=== PATIENT | male | born 1960 | race Asian ===

== ENCOUNTER 2024-07-25 13:06 | Emergency (ER) | payer SELFPAY ==
[2024-07-25 13:18] VITALS: BP 145/74; O2SAT 99
--- NOTE | 2024-07-25 13:28 | ED Physician Documentation ---
PD HPI SKIN - Stated complaint Stated Complaint: FISHING HOOK IN CHIN - Chief complaint Chief Complaint: Laceration - History obtained from History obtained from: Patient - Additional information Additional information: 63-year-old gentleman with unknown tetanus status [place] and another [place] person casted and now he has a fishing hook stuck in his chin that had been in a fish's mouth this morning. PD PAST MEDICAL HISTORY - Past Medical History Past Medical History: No Cardiovascular: None Respiratory: None Neuro: None Endocrine/Autoimmune: None GI: None : None HEENT: None Psych: None Musculoskeletal: None Derm: None - Past Surgical History Past Surgical History: No - Present Medications Home Medications: Ambulatory Orders Medication Instructions Recorded Confirmed Doxycycline [Vibramycin] 100 mg PO BID #10 tablet 07/25/24 - Allergies Allergies/Adverse Reactions: Allergies Allergy/AdvReac Type Severity Reaction Status Date / Time No Known Drug Allergies Allergy Verified 07/25/24 13:14 - Social History Does the pt smoke?: Yes Smoking Status: Current every day smoker Does the pt drink ETOH?: Yes Does the pt have substance abuse?: No - Immunizations Immunizations are current?: No - POLST Patient has POLST: No PD ED PE NORMAL - Vitals Vital signs reviewed: Yes - General General: Alert and oriented X 3, No acute distress - HEENT HEENT: Other (There is a fishing hook on the left anterior submandibular area.) - Neuro Neuro: Alert and oriented X 3 Results - Vitals Vitals: Vital Signs - 24 hr 07/25/24 13:14 Temperature 36.5 C Heart Rate 67 Respiratory 16 Rate Blood Pressure 145/74 H O2 Saturation 99 Oxygen O2 Source Room air Procedures - General procedure General procedure: The area was prepped with alcohol and local infiltrated with lidocaine. I was able to remove the fishing hook with an 18-gauge needle by putting the needle over the keena. Departure - Departure Disposition: 01 Home, Self Care Clinical Impression: Puncture wound Condition: Good Record reviewed to determine appropriate education?: Yes Instructions: ED Wound Puncture General Prescriptions: Doxycycline [Vibramycin] 100 mg PO BID #10 tablet Forms: PCP List Discharge Date/Time: 07/25/24 14:06
[2024-07-25] MEDS: DOXYCYCLINE 100 MG TABLET PO STA (13:50)
[2024-07-25] MEDS: TETANUS/DIPHTHERIA/PERTUSSIS 0.5 ML SYRINGE IM ONE (13:51)
== END 2024-07-25 14:06 | disposition home or self-care (01) ==
LOC: ED 13:06
DX: S01.84XA Puncture wound with foreign body of other part of head, initial encounter (principal); W45.8XXA Other foreign body or object entering through skin, initial encounter; F17.200 Nicotine dependence, unspecified, uncomplicated; Z23 Encounter for immunization
CPT/HCPCS: 90471; 90715; 99282; 99283; A9270